=== PATIENT | male | born 1980 | race African-American/Black ===

== ENCOUNTER 2016-12-15 02:54 | Emergency (ER) | payer OTHER ==
[2016-12-15] MEDS ORDERED: SODIUM CHLORIDE 0.9% 1000 ML INFUS.BAG IV ONE (03:20)
[2016-12-15] MEDS ORDERED: HYDROmorphone HCL CARPU-JECT 1 MG/1 ML DISP.SYRIN IVPUSH ONE ×2 (03:20→05:12)
--- NOTE | 2016-12-15 03:20 | PDOC ---
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 He denies any chest pain or shortness of breath. PAST MEDICAL HISTORY: as per hpi SOCIAL HISTORY:Denies tobacco, alcohol, illicit drug use. SURGICAL HISTORY: Denies ALLERGIES: pcn REVIEW OF SYSTEMS General/Constitutional: Denies fever or chills. Denies weakness, weight change. HEENT: Denies change in vision. Denies ear pain or discharge. Denies sore throat. Cardiovascular: Denies chest pain or shortness of breath. Respiratory: Denies cough, wheezing, or hemoptysis. Gastrointestinal: Denies nausea, vomiting, diarrhea or constipation. Denies rectal bleeding. Genitourinary: Denies dysuria, frequency, or change in urination. Musculoskeletal: Pain to R arm and L leg. Denies joint or muscle swelling or pain. Denies neck or back pain. Skin and breasts: Denies rash or easy bruising. Neurologic: Denies headache, vertigo, loss of consciousness, or loss of sensation. PHYSICAL EXAM General Appearance: Well-appearing, appropriately dressed. No apparent distress. HEENT: EOMI, PERRLA. No conjunctival pallor. No photophobia, scleral icterus. Neck: Supple. Trachea midline. No tenderness, rigidity, carotid bruit, stridor , lymphadenopathy, or thyromegaly. Respiratory/Chest: Lungs CTAB. No shortness of breath, chest tenderness, respiratory distress, accessory muscle use. No crackles, rales, rhonchi, stridor , wheezing, dullness Cardiovascular: RRR. S1, S2. Gastrointestinal/Abdominal: Normal bowel sounds. Abdomen soft, non-distended. Musculoskeletal/Extremities: Normal inspection. FROM of all extremities, normal capillary refill. No pedal edema, swelling, erythema or deformity. Integumentary: Appropriate color, dry, warm. No cyanosis, erythema, jaundice or rash Neurologic: manager cable II-XII intact. Fully oriented, alert. Appropriate mood/affect. Motor strength 5/5. No appreciable EOM palsy, facial droop or sensory deficit. Past History - Past Medical History Allergies/Adverse Reactions: Allergies Allergy/AdvReac Type Severity Reaction Status Date / Time Penicillins Allergy Verified 06/08/16 08:38 Home Medications: Ambulatory Orders Alprazolam [Xanax] 1 mg PO DAILY PRN 06/08/16 Aripiprazole [Abilify] 10 mg PO DAILY 06/08/16 Divalproex [Depakote -] 1,000 mg PO DAILY 06/08/16 Escitalopram Oxalate [Lexapro -] 20 mg PO DAILY 06/08/16 Methylphenidate HCl [Ritalin LA] 10 mg PO DAILY PRN 06/08/16 Oxycodone HCl/Acetaminophen [Percocet 5-325 mg Tablet] 1 tab PO Q4H PRN Oxycodone HCl/Acetaminophen [Percocet 5-325 mg Tablet] 2 tab PO Q4H #20 tablet MDD 8 06/08/16 Testosterone 0.25 ml IM WEEKLY 06/08/16 Oxycodone HCl/Acetaminophen [Percocet 5-325 mg Tablet] 2 tab PO Q6H #20 tablet MDD 8 12/15/16 Psychiatric Problems: Yes (bipolar) - Psycho/Social/Smoking Cessation Hx Suicidal Ideation: No Smoking Status: No Smoking History: Never smoked Number of Cigarettes Smoked Daily: 0 Hx Alcohol Use: No Drug/Substance Use Hx: No Substance Use Type: None Hx Substance Use Treatment: No ED Treatment Course - LABORATORY CBC & Chemistry Diagram: 12/15/16 03:21 12/15/16 03:21 Medical Decision Making - Medical Decision Making 12/15/16 04:23 35 yo male with PMH 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 -1L IVF -CBC, CMP -UA -Toradol 30 mg IV -Dilaudid 1 mg IV Patient reassessed, states he is feeling better but still in moderate amount of pain. -0.5 mg Dilaudid Patient states he is feeling better and ready to go home. Advised pt to f/u with hematology for continued management of sickle cell. Advised patient of signs and symptoms for return to ER; patient verbalized understanding and agrees to plan. 12/15/16 05:44 *DC/Admit/Observation/Transfer Diagnosis at time of Disposition: Sickle cell anemia with crisis - Discharge Dispostion Disposition: HOME Condition at time of disposition: Stable Admit: No - Prescriptions Prescriptions: Oxycodone HCl/Acetaminophen [Percocet 5-325 mg Tablet] 2 tab PO Q6H #20 tablet MDD 8 - Referrals Referrals: Gladys Steinberg MD [Staff Physician] - - Patient Instructions Printed Discharge Instructions: DI for Sickle Cell Anemia, Pain Crisis -- Adult Additional Instructions: Please follow up with hematology for continued management of sickle cell anemia. If you experience chest pain, shortness of breath, severe pain, fever, or any new or worsening symptoms, please return to the ER.
[2016-12-15] MEDS ORDERED: KETOROLAC TROMETHAMINE 30 MG/1 ML VIAL IVPUSH ONE (03:22)
[2016-12-15 03:37] VITALS: TEMP 97.5; BMI 31.8
[2016-12-15] MEDS ORDERED: HYDROmorphone HCL CARPU-JECT 2 MG/1 ML DISP.SYRIN ONE (03:39)
[2016-12-15 03:41] LABS: BASOPHIL 0.2 % (0-2.0); EOSINOPHIL 0.4 % (0-4.5); MCH 30.4 pg (25.7-33.7); MCHC 34.1 g/dl (32.0-35.9); MEAN CELL VOLUME 89.3 fl (80-96); MEAN PLT VOLUME 8.6 fl (7.5-11.1); NEUTROPHILS 78.4 % (42.8-82.8); PLATELET COUNT 255 K/MM3 (134-434); WHITE BLOOD COUNT 16.9 K/mm3 (4.0-10.0)
[2016-12-15 03:53] LABS: URINE APPEARANCE CLEAR; URINE BILIRUBIN NEGATIVE (NEGATIVE); URINE BLOOD NEGATIVE (NEGATIVE); URINE COLOR YELLOW; URINE GLUCOSE (UA) NEGATIVE (NEGATIVE); URINE KETONE NEGATIVE (NEGATIVE); URINE NITRITE NEGATIVE (NEGATIVE); URINE PROTEIN NEGATIVE (NEGATIVE); URINE UROBILINOGEN NEGATIVE E.U./dl (0.2-1.0)
[2016-12-15 03:54] LABS: URINE LEUK ESTERASE 1+ (NEGATIVE)
[2016-12-15 04:03] LABS: ALBUMIN 4.2 g/dl (3.4-5.0); ANION GAP 8 (8-16); BILIRUBIN,TOTAL 1.2 mg/dL (0.2-1.0); CALCIUM 8.2 mg/dL (8.5-10.1); CO2 29 mmol/L (21-32); CREATININE 0.9 mg/dL (0.7-1.3); GLUCOSE,RANDOM 100 mg/dL (74-106); SGOT/AST 26 U/L (15-37); SGPT/ALT 18 U/L (12-78); TOT PROT 7.5 g/dl (6.4-8.2)
[2016-12-15 04:04] LABS: ALK PHOS 56 U/L (45-117)
[2016-12-15 04:08] LABS: URINE BACTERIA RARE /hpf (NONE SEEN); URINE RBC <1 /hpf (0-3); URINE WBC 8 /hpf (3-5)
[2016-12-15] MEDS ORDERED: HYDROmorphone HCL CARPU-JECT 1 MG/1 ML DISP.SYRIN ONE (05:21)
[2016-12-15 05:25] VITALS: BP 127/89; PULSE 88
== END 2016-12-15 05:26 | disposition home or self-care (01) ==
LOC: JER 02:54
PROC: 3E033NZ Introduction of Analgesics, Hypnotics, Sedatives into Peripheral Vein, Percutaneous Approach (ICD-10-PCS; principal; 2016-12-15)
PROC: 3E0333Z Introduction of Anti-inflammatory into Peripheral Vein, Percutaneous Approach (ICD-10-PCS; 2016-12-15)
DX: D57.00 Hb-SS disease with crisis, unspecified (principal); M90.552 Osteonecrosis in diseases classified elsewhere, left thigh
CPT/HCPCS: 36415; 80053; 81003; 81015; 85025; 85044; 99285-25